=== PATIENT | male | born 1960 | race Caucasian/White ===

== ENCOUNTER 2016-08-11 07:22 | Outpatient (CLI) | payer BC ==
[~2016-08-11] VITALS: Ht 170.2 cm; Wt 87.3 kg
--- NOTE | ~2016-08-11 | HEMODYNAMI ---
PATIENT:RICCARDO PIERCE MEDICAL RECORD: [id number] : 58 LOCATION:D.ANDERS ADMISSION DATE: 08/11/16 Generatedon:08/11/201611:22 Patient name: RICCARDO PIERCE Patient #: [id number] SSN: : 1960 Date of study: 08/11/2016 Page: Of Hemodynamic Procedure Report Patient Data Patient Demographics Procedure consent was obtained First Name: RICCARDO Gender: Male Last Name: KARI : 1960 [facility] Initial: REINA Age: 55 year(s) Patient #: [id number] Race: Unknown Additional ID: [id number] Contact details Address: [address] [place] [address] rd State: [place] City: [place] Zip code: [address] Past Medical History Performed procedures and imaging results Date Procedure Procedure Results Comments 07/28/2016 Stress Positive->Intermediate Inferiorolaterally testing risk with SPECT MPI Allergies Allergen Reaction Date Comments Reported Other allergy 08/11/2016 Penicillins,sulfa Admission Admission Data Admission Date: 08/11/2016 Admission Time: 7:22 Admit Source: Other Height (in.): 67 BSA: 1.99 (m2) Height (cm.): 170.18 BMI: 30.13 (kg/m2) Weight (lbs.): 192.4 Weight (kg.): 87.27 Lab Results Lab Result Date: 08/11/2016 Lab Result Time: 8:50 Biochemistry Name Units Result Min Max Creatinine mg/dl 0.9 --(-*--)-- 0.6 1.3 CBC Name Units Result Min Max Hemoglobin g/dl 15.2 --(-*--)-- 13.5 17.5 Procedure Procedure Types Cath Procedure Diagnostic Procedure [facility] w/Coronaries PCI Procedure Coronary Stent Initial Procedure Description Procedure Date Procedure Date: 08/11/2016 Procedure Start Time: 10:33 Procedure End Time: 11:22 Procedure Staff Name Function Kris Enamorado MD Performing Physician Tyler Villar RT Scrub Leyda Brenner RN Nurse Branden Stover RN Criminal Defense Attorney Mayda Arriaga RT Monitor Procedure Data Cath Procedure Fluoroscopy Diagnostic fluoroscopy Total fluoroscopy Time: 8.9 time: 8.9 min min Diagnostic fluoroscopy Total fluoroscopy dose: 817 dose: 817 mGy mGy Contrast Material Contrast Material Type Amount (ml) Isovue 300 159 Entry Location Entry Primary Successful Side Size Upsize Upsize Entry Closure Russo ccessful Closure Location (Fr) 1 (Fr) 2 (Fr) Remarks Device Remarks Radial Right 6 Fr Unsuccessful artery Short puncture. Femoral Right 5 Fr Exoseal vein Femoral Right 5 Fr 6 Fr Exoseal artery Short Estimated blood loss: 10 ml Diagnostic catheters Device Type Used For End Catheter Placement Cordis 5Fr JL 4.0 Left Coronary Catheter (MP) Angiography Cordis 5Fr 3DRC Catheter Right Coronary (MP) Angiography Cordis 5Fr Pigtail LV Angiography Catheter (MP) Procedure Complications No complications Procedure Medications Medication Administration Route Dosage Oxygen NC 2 l/min Benadryl I.V. 50 mg Lidocaine 2% added to field 20 Heparin Flush Bag added to field 2 bags (1000units/500ml NS) 0.9% NaCl I.V. 100 ml/hr Versed I.V. 2 mg Fentanyl I.V. 100 mcg Versed I.V. 1 mg Fentanyl I.V. 50 mcg Radial Cocktail added to field 1 syringe (Verapomil 2mg/Nitro 400mcg/Heparin 1500units) Versed I.V. 1 mg Fentanyl I.V. 50 mcg Heparin Bolus I.V. 8500 units Nitroglycerin IC/IA I.C. 50 mcg Plavix P.O. 75 mg Hemodynamics Rest BSA: 1.99 (m2) HGB: 15.2 (g/dl) O2 Consumption: Estimated: 226.21 (ml/min) O2 Co nsumption indexed: Estimated:113.67 (ml/min/m) Heart Rate: 58 (bpm) Pressure Samples Time Site Value (mmHg) Purpose Heart Use Rate(bpm) 10:50 LV 101/15,26 Snapshot 66 10:51 AO 91/56(71) Pullback 67 10:51 LV 100/15,18 Pullback 67 Gradients Valve Time Site 1 Site 2 Mean SEP/DFP Peak To Heart Use (mmHg) (sec/min) Peak Rate (mmHg) (bpm) Aortic 10:51 LV AO 7 21 9 67 100/15,18 91/56(71) Calculations Valve P-P Mean Valve Index Valve Source Name Gradient Area Flow (cm2) Aortic 9 7 9 7 Snapshots Pre Cath Intra NCS Post Cath Vital Signs Time Heart Resp SPO2 etCO2 [id number] NIBP (mmHg) Rhythm Pain Sedation Rate (ipm) (%) (mmHg) (mmHg) Status Level (bpm) 10:17:03 57 19 98 0 0 118/63(90) NSR 0 (11) 10(A) , No pain 10:21:17 59 19 99 0 0 124/75(105) NSR 0 (11) 10(A) , No pain 10:25:36 61 20 99 0 0 121/75(99) NSR 0 (11) 10(A) , No pain 10:29:54 63 18 94 0 0 103/59(86) NSR 0 (11) 10(A) , No pain 10:34:05 62 17 94 0 0 100/59(81) NSR 0 (11) 9(A) , No pain 10:38:17 61 19 95 0 0 98/58(76) NSR 0 (11) 9(A) , No pain 10:42:27 63 19 94 0 0 105/61(76) NSR 0 (11) 9(A) , No pain 10:46:39 62 19 95 0 0 93/63(82) NSR 0 (11) 9(A) , No pain 10:50:47 89 19 94 0 0 93/60(79) NSR 0 (11) 9(A) , No pain 10:54:57 66 18 95 0 0 95/57(74) NSR 0 (11) 9(A) , No pain 10:59:09 70 18 95 0 0 92/49(72) NSR 0 (11) 9(A) , No pain 11:03:19 70 17 95 0 0 89/52(69) NSR 0 (11) 9(A) , No pain 11:07:27 70 17 94 0 0 93/56(70) NSR 0 (11) 9(A) , No pain 11:11:36 67 17 94 0 0 94/53(72) NSR 0 (11) 9(A) , No pain 11:15:42 71 16 95 0 0 103/67(81) NSR 0 (11) 9(A) , No pain 11:19:52 71 25 97 0 0 117/68(99) NSR 0 (11) 9(A) , No pain Medications Time Medication Route Dose Verified Delivered Reason Note s Effectiveness by by 10:15:39 Oxygen NC 2 l/min Kris Buffie used for London Brenner RN procedure 10:15:47 Benadryl I.V. 50 mg Kris Buffie used for London Brenner RN procedure 10:20:28 Radial Cocktail added 1 Kris Buffie not (Verapomil to syringe London Brenner RN used. 2mg/Nitro field 400mcg/Heparin 1500units) 10:22:29 Lidocaine 2% added 20ml Kris Kris for local to vial London Enamorado MD anesthetic field 10:22:36 Heparin Flush added 2 bags Kris Kris used for Bag to London Enamorado MD procedure (1000units/500ml field NS) 10:22:45 0.9% NaCl I.V. 100 Kris Buffie Per physician ml/hr London Brenner RN 10:29:43 Versed I.V. 2 mg Kris Buffie for sedation London Brenner RN 10:29:50 Fentanyl I.V. 100 mcg Kris Buffie for sedation London Brenner RN 10:37:37 Versed I.V. 1 mg Kris Buffie for sedation London Brenner RN 10:37:42 Fentanyl I.V. 50 mcg Kris Buffie for sedation London Brenner RN 10:43:36 Versed I.V. 1 mg Kris Buffie for sedation London Brenner RN 10:43:41 Fentanyl I.V. 50 mcg Kris Buffie for sedation London Brenner RN 10:55:22 Heparin Bolus I.V. 8,500 Kris Buffie for veri fied units London Brenner RN anticoagulation with dr enamorado 10:57:05 Nitroglycerin I.C. 50 mcg Kris Kris for IC/IA London palmer 11:16:56 Plavix P.O. 75 mg Kris Buffie for London Brenner RN antiplatelet therapy Procedure Log Time Note 9:48:25 Branden Stover RN sent for patient. Start room use. 9:48:27 Time tracking: Regular hours 9:48:31 Plan of Care:Hemodynamics will remain stable., Cardiac rhythm will remain stable., Comfort level will be maintained., Respiratory function will remain adequate., Patient/ family verbilizes understanding of procedure., Procedure tolerated without complication., Recovers from procedure without complications.. 9:59:29 Patient Height : 67 cm 9:59:34 Patient Weight : 192.4 kg 9:59:39 Admit Source: Other 10:00:06 Patient allergic to Other allergyPenicillins,sulfa 10:00:37 Lab Result : Creatinine 0.9 mg/dl 10:00:37 Lab Result : Hemoglobin 15.2 g/dl 10:00:41 Lab results completed and on chart. 10:03:29 ACCPatient has been prescribed/administered the following anti-anginal medication within the last 2 weeks: Beta Roman 10:03:33 ACC Patient presents with Stable Angina CCS Anginal Class 2--Slight limitation of ordinary activity. 10:09:39 Patient received from Outpatients to [facility] 2 Alert and oriented. Tansferred to table in Supine position. 10:09:40 Warm blankets applied, and dwayne hugger turned on for patient comfort. 10:09:41 Correct patient and procedure confirmed by team. 10:09:42 Signed procedure consent form obtained from patient. 10:09:43 ECG and BP/O2 sat monitors applied to patient. 10:09:44 Full Disclosure recording started 10:15:39 Oxygen 2 l/min NC was given by Leyda Brenner RN; used for procedure; 10:15:47 Benadryl 50 mg I.V. was given by Leyda Brenner RN; used for procedure; 10:15:51 Vital chart was started 10:17:39 Baseline sample Acquired. 10:18:11 Rhythm: sinus rhythm 10:20:28 Radial Cocktail (Verapomil 2mg/Nitro 400mcg/Heparin 1500units) 1 syringe added to field was given by Leyda Brenner RN; ; not used. 10:22:29 Lidocaine 2% 20ml vial added to field was given by Kris Enamorado MD; for local anesthetic; 10:22:36 Heparin Flush Bag (1000units/500ml NS) 2 bags added to field was given by Kris Enamorado MD; used for procedure; 10:22:45 0.9% NaCl 100 ml/hr I.V. was given by Leyda Brenner RN; Per physician; 10:23:04 H&P Date Dictated: 07/14/2016 Within 30 days and on chart., H&P Addendum completed by physician on day of procedure. (MUST COMPLETE FOR ALL OUTPATIENTS). 10:23:05 Pre-procedure instructions explained to patient. 10:23:05 Pre-op teaching completed and patient verbalized understanding. 10:23:06 Family in waiting room. 10:23:08 Patient NPO since Midnight. 10:23:10 Is the patient allergic to Iodine/contrast media? No. 10:23:11 Is patient on blood thinner?Yes 10:23:13 ACC The patient was administered the following blood thiners within the last 24 hours: ACCPlavix 10:23:16 Patient diabetic? No. 10:23:19 Previous problem with sedation/anesthesia? No ? 10:23:20 Snore? Yes 10:23:21 Sleep apnea? No 10:23:21 Deviated septum? No 10:23:22 Opens mouth fully? Yes 10:23:23 Sticks out tongue? Yes 10:23:24 Airway obstruction? No ? 10:23:26 Dentures? No ? 10:23:29 Pre procedure: right dorsailis pedis pulse 2+ Normal; easily identifiable; not easily obliterated 10:23:32 Modified Orlin's test Ulnar < 7 seconds 10:23:34 Patient pain scale 0/10 ?. 10:23:40 IV patent on arrival in left forearm with 0.9% NaCl at [facility]. 10:23:46 Right Radial & Right Groin area was prepped with chlora-prep and draped in sterile fashion 10:23:46 Alarms reviewed by R. N. 10:23:47 Sharps counted by scrub and verified by R.N. 10:23:52 Use device set Radial Dx 10:23:53 Acist Syringe opened to sterile field. 10:23:53 Cardinal Cath Pack opened to sterile field. 10:23:54 Bag Decanter opened to sterile field. 10:23:54 Terumo 6Fr Slender Glidesheath opened to sterile field. 10:23:55 St Malick 260cm J .035 wire opened to sterile field. 10:23:56 Acist Hand Control opened to sterile field. 10:23:56 Acist Manifold opened to sterile field. 10:23:57 Tegaderm 4 x 4 opened to sterile field. 10:28:14 Final Timeout: patient, procedure, and site verified with staff and physician. All members of the team are in agreement. 10:28:19 Right Radial site verified by team. 10:28:21 Physical assessment completed. ASA score P 2 - A patient with mild systemic disease as per Kris Enamorado MD. 10:28:24 Sedation plan: IV Moderate Sedation Versed, Fentanyl 10:29:43 Versed 2 mg I.V. was given by Leyda Brenner RN; for sedation; 10:29:50 Fentanyl 100 mcg I.V. was given by Leyda Brenner RN; for sedation; 10:33:06 Procedure started. 10:33:12 Zero performed for pressure channel P1 10:33:42 Local anesthetic to right radial artery with Lidocaine 2% by Kris Enamorado MD.INITIAL ACCESS ONLY 10:34:29 A 6 Fr Short sheath was inserted into the Right Radial arteryUnsuccessful puncture. 10:37:37 Versed 1 mg I.V. was given by Leyda Brenner RN; for sedation; 10:37:42 Fentanyl 50 mcg I.V. was given by Leyda Brenner RN; for sedation; 10:38:52 Terumo 5Fr [place] Sheath opened to sterile field. 10:39:44 Use device set Multipack Set 10:39:46 Cordis Infinity 5Fr Multipack catheter opened to sterile field. 10:39:58 Local anesthetic to right femoral artery with Lidocaine 2% by Kris Enamorado MD.ADDITIONAL ACCESS 10:42:32 A 5 Fr sheath was inserted into the Right Femoral vein 10:43:36 Versed 1 mg I.V. was given by Leyda Brenner RN; for sedation; 10:43:41 Fentanyl 50 mcg I.V. was given by Leyda Brenner RN; for sedation; 10:44:00 A 5 Fr sheath was inserted into the Right Femoral artery 10:45:12 A Cordis 5Fr JL 4.0 Catheter (MP) was advanced over the wire and used for Left Coronary Angiography. 10:46:58 Catheter removed. 10:47:34 A Cordis 5Fr 3DRC Catheter (MP) was advanced over the wire and used for Right Coronary Angiography. 10:49:23 Catheter removed. 10:50:10 A Cordis 5Fr Pigtail Catheter (MP) was advanced over the wire and used for LV Angiography. 10:50:52 LV gram done using MEDRANO 10:50:53 LV hemodynamics recorded. 10:50:59 Injector settings: Ml/sec: 10, Volume: 20, 10:51:03 EF : 60 % 10:52:28 Catheter removed. 10:53:35 High Pressure Extension Tubing (oLndon) opened to sterile field. 10:53:37 Terumo 6Fr [place] Sheath opened to sterile field. 10:53:37 Ellis BMW [place] 2 J-tip 300cm 0.014 guide wir opened to sterile field. 10:53:55 Sheath upsized to a 6 Fr Short. 10:54:03 ACC PCI Site: mLAD has 70% stenosis. 10:54:05 ACC Pre-intervention ELIAZAR Flow is 3. 10:54:36 6 Fr AR 1.0 guide catheter was inserted over the wire 10:55:22 Heparin Bolus 8,500 units I.V. was given by Leyda Brenner RN; for anticoagulation; verified with dr enamorado 10:57:05 Nitroglycerin IC/IA 50 mcg I.C. was given by Kris Enamorado MD; for vasodilation; 10:59:03 BM wire advanced. 11:03:48 Inflation Number: 1 A Medtronic Integrity 3.0 X 30 stent was prepped and advanced across the Mid RCA. The stent was deployed at 14 MICKI for 0:15 (min:sec). 11:05:03 Stent catheter was removed intact over wire. 11:11:41 Inflation Number: 2 A Medtronic Integrity 3.0 X 18 stent was prepped and advanced across the Mid RCA. The stent was deployed at 16 MICKI for 0:20 (min:sec). 11:12:24 ACC Post-intervention ELIAZAR Flow is 3. 11:12:29 Stent catheter was removed intact over wire. 11:12:31 Wire removed. 11:12:31 Guide catheter removed. 11:12:45 Cordis 6Fr Exoseal opened to sterile field. 11:12:51 Cordis 5Fr Exoseal opened to sterile field. 11:13:13 Sheath removed intact; hemostasis achieved with Exoseal to the Right Femoral artery. 11:13:44 Sheath removed intact; hemostasis achieved with Exoseal to the Right Femoral vein. 11:13:48 Procedure ended.(Physican Out) 11:16:11 Fluoroscopy time 08.90 minutes. 11:16:16 Fluoroscopy dose: 817 mGy 11:16:16 Flurop Dose total: 817 11:16:23 Contrast amount:Isovue 300 159ml. 11:16:24 Sharps counted by scrub and verified by R.N. 11:16:26 Insertion/operative site no bleeding no hematoma. 11:16:32 Post-op/insertion site Right Femoral artery dressed using a 4 x 4 and Tegaderm. 11:16:36 Post right femoral artery:stable, clean and dry 11:16:42 Post right femoral vein:stable, clean and dry 11:16:43 Post Procedure Pulses reassessed and unchanged 11:16:47 Post-procedure physical assessment completed. ASA score P 2 - A patient with mild systemic disease as per Kris Enamorado MD. 11:16:49 Post procedure rhythm: unchanged. 11:16:52 Estimated blood loss: 10 ml 11:16:53 Post procedure instruction explained to patient.Patient verbalizes understanding. 11:16:54 Patient needs reinforcement of post procedure teaching. 11:16:56 Plavix 75 mg P.O. was given by Leyda Brenner RN; for antiplatelet therapy; 11:16:58 Procedure type changed to Cath procedure, Diagnostic procedure, LHC, LHC w/Coronaries, PCI procedure, Coronary Stent Initial 11:17:05 Procedure Complication : No complications 11:17:08 See physician's report for complete and final results. 11:18:31 Merit BasixCompak Inflation Kit opened to sterile field. 11:18:56 Terumo 5Fr [place] Sheath opened to sterile field. 11:20:34 Cook 21G 4cm Radial Needle opened to sterile field. 11:21:21 Medtronic Launcher 6Fr AR 1.0 guide catheter opened to sterile field. 11:21:44 Procedure and supply charges have been captured, reviewed, submitted and are correct. 11:21:46 Vital chart was stopped 11:21:48 Report given to Post Procedure Room. 11:21:53 Patient transfered to Post Procedure Room with Stretcher. 11:22:05 Procedure ended. 11:22:05 Full Disclosure recording stopped 11:22:31 End room use (Document Last) Intervention Summary Intervention Notes Time ActionType Lesion and Equipment Action# Pressure Duration Attributes Used 11:03:48 Place stent Mid RCA Medtronic 1 14 00:15 Integrity 3.0 X 30 stent 11:11:41 Place stent Mid RCA Medtronic 2 16 00:20 Integrity 3.0 X 18 stent Device Usage Item Name Manufacture Quantity Catalog Hospital Part Current Minimal Lot# / Number Charge Number Stock Stock Serial# Code Acist Acist 1 41816 490182 324028 180921 20 Syringe Medical Systems Inc Cardinal Cardinal 1 [id number] 527619 40024 504624 5 Cath Pack Health Bag Microtek 1 2002S 993594 68954 545207 5 DecPrimcogent Solutions Inc. Terumo 6Fr Terumo 1 [id number] 993143 049316 249839 [address] Malick St Malick 1 424919 201015 801067 943623 30 260cm J .035 wire Acist Hand Acist 1 81353 810107 816255 190528 5 Intralign Medical Systems Inc Acist Acist 1 57323 468831 839622 760466 5 Project Repat Medical Systems Inc Tegaderm 4 3M 1 1626W 618954 752405 867921 5 x 4 Terumo 5Fr Terumo 2 [id number] 300017 602689 881605 40 [place] Sheath Cordis Cardinal 1 [id number] 121406 36425 604335 30 Infinity Health 5Fr Multipack catheter Cordis 5Fr Cardinal 1 221738 5 JL 4.0 Health Catheter (MP) Cordis 5Fr Cardinal 1 445895 5 3DRC Health Catheter (MP) Cordis 5Fr Cardinal 1 399527 5 Pigtail Health Catheter (MP) High Merit 1 [id number] 739699 76197 851791 10 Pressure Medical Extension Tubing (Enamorado) Terumo 6Fr Terumo 1 [id number] 076813 528831 358253 40 [place] Sheath Ellis BMW Ellis 1 [id number] 038047 158343 380318 5 [place] 2 Vascular J-tip 300cm 0.014 guide wir Medtronic Medtronic 1 [id number] 301231 968418 063581 2 [id number] Integrity 3.0 X 30 stent Medtronic Medtronic 1 [id number] 141109 941028 740876 1 [id number] Integrity 3.0 X 18 stent Cordis 6Fr Cardinal 1 [id number] 189821 177554 807720 10 Exoseal Health Cordis 5Fr Cardinal 1 EX500 978883 911829 644377 10 Exoseal Health Merit [facility] 1 [id number] 504039 980764 478826 15 MediaBrixixOhmconnect Medical Inflation Kit Cook 21G [employer] 1 [id number] 559929 539790 5 4cm Radial Needle Medtronic Medtronic 1 [id number] 245544 91519 326523 1 Launcher 6Fr AR 1.0 guide catheter Signature Audit [place] Stage Time Signature Unsigned Intra-Procedure 08/11/2016 Mayda 11:22:44 AM Counts RT(R) Signatures Monitor : Mayda Signature : Counts RT Date : Time : [address] [address]
[2016-08-11] MEDS ORDERED: TOPROL XL50 MG PO (08:22)
[2016-08-11] MEDS ORDERED: PLAVIX75 MG PO (08:22)
[2016-08-11] MEDS ORDERED: RAMIPRIL (08:23)
[2016-08-11] MEDS ORDERED: ATORVASTATIN (08:24)
[2016-08-11] MEDS ORDERED: MUCUS RELIEF400 MG PO (08:24)
[2016-08-11] MEDS ORDERED: ASPIRIN325 MG PO (08:25)
[2016-08-11] MEDS ORDERED: ZANTAC150 MG PO (08:25)
[2016-08-11] MEDS ORDERED: LIPITOR40 MG PO (08:27)
[2016-08-11] MEDS ORDERED: ALTACE5 MG PO (08:28)
[2016-08-11 08:36] VITALS: BP 122/75; Ht 170.2 cm; Wt 87.3 kg
[2016-08-11 09:14] LABS: BASOPHILS 0.2 % (0.0-2.0); EOSINOPHILS 0.9 % (0-7); HEMATOCRIT 44.9 % (42.0-54.0); HEMOGLOBIN 15.2 g/dL (13.5-17.5); IMMATURE GRANULOCYTES 0.5 % (0-5); LYMPHOCYTES 17.7 % (15-50); MCH 30.8 pg (26.0-34.0); MCHC 33.9 g/dL (31.0-37.0); MCV 91.1 fL (80.0-100.0); MONOCYTES 7.1 % (2-11); NEUTROPHILS 73.6 % (40-80); PLATELET COUNT 152 10x3/uL (130-400); RBC 4.93 10x6/uL (4.20-6.10); RDW 13.1 % (11.5-14.5); WBC 9.8 10x3/uL (4.8-10.8)
[2016-08-11 09:47] LABS: CALC OSMOLALITY 282 mosm/kg (275-300); CALCIUM 9.1 mg/dL (8.5-10.1); CARBON DIOXIDE 26.4 mmol/L (21.0-32.0); CHLORIDE - SERUM 107 mmol/L (98-107); CREATININE - SERUM 0.9 mg/dL (0.6-1.3); GLUCOSE 92 mg/dL (74-106); POTASSIUM - SERUM 4.4 mmol/L (3.5-5.1); SODIUM 141 mmol/L (136-145); UREA NITROGEN 17 mg/dL (7-18); eGFR NON AFRICAN AMERICAN > 90 mL/min (90-120)
--- NOTE | 2016-08-11 11:50 | NUR ---
RESTING QUIETLY WITH EYES CLOSED 02 AT 2 LITERS NO DISTRESS HR 65 BP 126/66 CHEST PAIN DENIED. 6 FR VASCADE R/GROIN CDI NO BLEEDING NO HEMATOMA NOTED. INSTRUCTED PATIENT TO KEEP HEAD FLAT ON PILLOW WITH RLE STRAIGHT
--- NOTE | 2016-08-11 13:06 | NUR ---
VOIDED 400CC URINE VIA URINAL
--- NOTE | 2016-08-11 13:39 | NUR ---
SLEEPING QUIETLY WITH NO DISTRESS NOTED. VSS 6 FR EXOSEAL R/GROIN CDI NO BLEEDING NO HEMATOMA NOTED. WILL MONITOR
--- NOTE | 2016-08-11 15:32 | NUR ---
1430 CONTINUES TO LAY FLAT, NSR RATE 77 WNO C/O CHEST PAIN. PULSES PALP X4. BOTH 5/6F EXOSEAL C/D/I TO R GROIN. NO HEMATOMA OR BLEEDING NOTED.
--- NOTE | 2016-08-11 15:32 | NUR ---
1530 PIV REMOVED FROM L FOREARM WITH BANDAID APPLIED. HOB ELEVATED, WILL MONITOR R GROIN FOR BLEEDING.
--- NOTE | 2016-08-11 15:42 | NUR ---
UP TO BEDSIDE TO DRESS, R GROIN REMAINS C/D/I WITH NO HEMATOMA OR BLEEDING.
--- NOTE | 2016-08-11 15:54 | NUR ---
VERBAL AND WRITTEN DISCHARGE GONE OVER WITH PATIENT AND . TRANSPORTED VIA TO [facility] TO DRIVE HOME CHEST PAIN IS DENIED AND 6 FR EXOSEAL R/GROIN CDI
--- NOTE | 2016-08-15 15:45 | OP ---
PATIENT NAME: RICCARDO PIERCE MEDICAL RECORD: [id number] :58 LOCATION:D.CAT ADMISSION DATE: SURGEON: ROULA LINARES M.D. DATE OF OPERATION: 08/11/2016 Catheterization Report REFERRING PHYSICIAN: Dr. Pawel Hale. PROCEDURES PERFORMED: 1. Selective coronary angiography. 2. Left heart catheterization with ventriculogram. 3. PTCA and stent placed in the right coronary. INDICATION: A 55-year-old gentleman presents with worsening angina. Recent stress testing revealed inferior and lateral wall ischemia. EQUIPMENT USED: Diagnostic 5-Welsh JL4, Calos right, pigtail catheter. INTERVENTION: A 6-Welsh AR1 guide, BMW guide wire, 3.0 x 30 mm Integrity stent, 3.0 x 18 mm Integrity stent. TECHNIQUE: A 5-Welsh sheath was inserted in retrograde fashion in the right common femoral artery. Next, selective coronary angiography was performed in standard views using 5-Welsh JL4 and Calos right. Left heart catheterization was performed using pigtail catheter. CORONARY ANATOMY: 1. Left main: Left main trunk is moderate in caliber. It gives rise to the LAD and circumflex. It has no obstruction. 2. LAD: This vessel has been stented in the proximal segment. There is diffuse restenosis seen, but nothing worse than 30% to 40%. The mid distal vessel is of good caliber and has no obstruction. 3. Circumflex: This vessel is moderate in caliber. It has mild irregularities throughout its course, but nothing worse than 20%. 4. Right coronary: This vessel is moderate in caliber and dominant. The proximal vessel has an ulcerated 60% to 70% stenosis. The mid segment demonstrates a focal 80% stenosis. 5. Left ventricle: Left ventricle is normal in size and function. No wall motion abnormalities are seen. Estimated ejection fraction is 60%. DESCRIPTION OF INTERVENTION: A 6-Welsh sheath was inserted in retrograde fashion in the right common femoral artery. Next, 100 units per kilogram of heparin was infused. A 6-Welsh AR1 guide was advanced and engaged in the right coronary artery. Next, a BMW guide wire was passed into the distal vessel. A 3.0 x 30 mm Integrity stent was placed across this long diseased area and across the distal lesion. The stent was then deployed at 14 atmospheres. However, the proximal stent, there still was an area that was uncovered and still was ulcerated. At this point, 3.0 x 18 mm Integrity stent was placed proximally the existing stent in an overlapping fashion. This stent was deployed at 16 atmospheres. Injection revealed both stents to be widely patent with 0% residual stenosis. There is marked improvement in distal flow. At this point, the wire and guide were removed. IMPRESSION: Successful percutaneous transluminal coronary angioplasty and stent OPERATIVE REPORT [id number] RICCARDO PIERCE in the right coronary artery. TRANSINT:[id number] Voice Confirmation ID: [id number] DOCUMENT ID: [id number] ROULA LINARES M.D. at 1545 CC: [id number] DICTATION DATE: 08/11/16 1123 QUESTIONED DOCUMENTS EXAMINER: 08/11/[address] [facility] CLI 08/11/16 [facility] [address] [place] [address]
== END 2016-08-11 15:56 | disposition home or self-care (01) ==
LOC: D.CATH 07:22
PROVIDERS: Internal Medicine Cardiovascular Disease
DX: I25.10 Atherosclerotic heart disease of native coronary artery without angina pectoris (principal); F17.200 Nicotine dependence, unspecified, uncomplicated

== ENCOUNTER 2016-11-28 01:53 | Outpatient (CLI) | payer BC ==
[~2016-11-28] VITALS: Ht 170.2 cm; Wt 87.7 kg
--- NOTE | ~2016-11-28 | OP ---
PATIENT NAME: RICCARDO PIERCE MEDICAL RECORD: [id number] :58 LOCATION:D.M2 D.2115 ADMISSION DATE:11/28/16 SURGEON: VIMAL COLEMAN MD DATE OF OPERATION: 11/28/2016 Cath, PTCA report, right femoral artery approach. CATHETERS: A 5-Mohawk sheath, 5/4 left and right Janneth, 5/4 pig. The procedure was tolerated and we proceeded immediately with the intervention of the ____ finished. FINDINGS: Left ventriculography in 30-degree MEDRANO view: Normal wall motion, normal systolic function. CORONARY ANATOMY: Left main: Left main is free of disease. LAD: LAD has about 70% stenosis and a restenosis in the proximal portion, does not appear flow limiting. CIRCUMFLEX: Circumflex has a OM with about 50% to 60% restenosis. RIGHT CORONARY ARTERY: Has severe diffuse in-stent restenosis, 90% in its greatest. PLAN: Intervention of this vessel momentarily. DESCRIPTION OF PROCEDURE: A 5-Mohawk sheath was changed for a 6-Mohawk sheath. A hockey stick guide catheter applied with excellent guide catheter support. Pre-deployment balloon used was a 20 mm, 3.0. Balloon was placed up and down the area of diffusely restenotic stents. Stents were placed in the following fashion. A 36 mm, 3.5 Resolute stent was placed to cover the entire distal aspect, inflated up to 14 atmospheres. Next, more proximally a 15 mm Resolute drug-eluting stent inflated up to 14 atmospheres. Final injection shows excellent resolution of severe diffuse in-stent restenosis ____ negative residual. Given caliber of the stent and medicated, hopefully, this will significantly decrease chance of restenosis as he has multiple episodes of restenosis in the past. TRANSINT:[id number] Voice Confirmation ID: [id number] DOCUMENT ID: [id number] VIMAL COLEMAN MD CC: [id number] DICTATION DATE: 11/28/16 1004 THEATRICAL TROUPER: 11/28/16 1631 DIS IN 11/28/16 [facility] [address] [id number]
--- NOTE | ~2016-11-28 | HEMODYNAMI ---
PATIENT:RICCARDO PIERCE MEDICAL RECORD: [id number] : 58 LOCATION:[facility] D.2115 ADMISSION DATE: 11/28/16 Generatedon:11/28/201610:03 Patient name: RICCARDO PIERCE Patient #: [id number] SSN: : 1960 Date of study: 11/28/2016 Page: Of Hemodynamic Procedure Report Patient Data Patient Demographics Procedure consent was obtained First Name: RICCARDO Gender: Male Last Name: KARI : 1960 [facility] Initial: REINA Age: 56 year(s) Patient #: [id number] Race: Unknown Additional ID: [id number] Contact details Address: [address] [place] [address] State: [place] City: [place] Zip code: [address] Past Medical History Allergies Allergen Reaction Date Comments Reported Other allergy 08/11/2016 Penicillins,sulfa Sulfa drugs 11/28/2016 Penicillins 11/28/2016 Admission Admission Data Admission Date: 11/28/2016 Admission Time: 1:53 Room #: D.2115 Lab Results Lab Result Date: 11/28/2016 Lab Result Time: 0:00 Biochemistry Name Units Result Min Max BUN mg/dl 21 --(----)-* 7 18 Creatinine mg/dl 1 --(--*-)-- 0.6 1.3 CBC Name Units Result Min Max Hemoglobin g/dl 14 --(*---)-- 13.5 17.5 Procedure Procedure Types Cath Procedure Diagnostic Procedure LHC LHC w/Coronaries PCI Procedure Coronary Stent Initial Miscellaneous Procedures Moderate Sedation up to 15 minutes Procedure Description Procedure Date Procedure Date: 11/28/2016 Procedure Start Time: 9:33 Procedure End Time: 10:01 Procedure Staff Name Function Eddie Johnson MD Performing Physician Jo Cee RN Nurse Radha Patton RT Scrub Tata Herman RT Monitor Procedure Data Cath Procedure Fluoroscopy Diagnostic fluoroscopy Total fluoroscopy Time: 7 time: 7 min min Diagnostic fluoroscopy Total fluoroscopy dose: 722 dose: 722 mGy mGy Contrast Material Contrast Material Type Amount (ml) Isovue 300 100 Entry Location Entry Primary Successful Side Size Upsize Upsize Entry Closure Succes sful Closure Location (Fr) 1 (Fr) 2 (Fr) Remarks Device Remarks Femoral Right 5 Fr 6 Fr Exoseal artery Short Estimated blood loss: 10 ml Diagnostic catheters Device Type Used For End Catheter Placement Cordis 5Fr JL 4.0 Procedure Catheter (MP) Cordis 5Fr 3DRC Catheter Procedure (MP) Cordis 5Fr Pigtail LV Angiography Catheter (MP) Procedure Complications No complications Procedure Medications Medication Administration Route Dosage Oxygen NC 3 l/min Heparin Flush Bag added to field 2 bags (1000units/500ml NS) Lidocaine 2% added to field 20 Versed I.V. 1 mg Fentanyl I.V. 50 mcg Versed I.V. 1 mg Fentanyl I.V. 50 mcg Versed I.V. 1 mg Fentanyl I.V. 50 mcg Heparin Bolus I.V. 5000 units Integrilin (Bolus I.V. 7.9 ml 2mg/ml) Versed I.V. 1 mg Fentanyl I.V. 50 mcg Plavix P.O. 300 mg Hemodynamics Rest HGB: 14 (g/dl) Heart Rate: 63 (bpm) Pressure Samples Time Site Value (mmHg) Purpose Heart Use Rate(bpm) 9:40 LV 117/12,20 Snapshot 63 Gradients Valve Time Site Site Mean SEP/DFP Peak To Heart Use 1 2 (mmHg) (sec/min) Peak Rate (mmHg) (bpm) Aortic 9:41 LV AO 67 Snapshots Pre Cath Intra NCS Post Cath Vital Signs Time Heart Resp SPO2 etCO2 LP8izbe NIBP (mmHg) Rhythm Pain Sedation Rate (ipm) (%) (mmHg) (mmHg) Status Level (bpm) 8:45:04 61 18 97 0 0 113/69(88) NSR 0 (11) 10(A) , No pain 8:49:15 63 17 98 0 0 113/68(84) NSR 0 (11) 10(A) , No pain 8:53:27 59 16 97 0 0 114/58(79) NSR 0 (11) 10(A) , No pain 8:57:39 61 16 97 0 0 100/60(78) NSR 0 (11) 10(A) , No pain 9:01:49 62 16 96 0 0 99/60(72) NSR 0 (11) 10(A) , No pain 9:05:59 62 17 96 0 0 100/54(70) NSR 0 (11) 10(A) , No pain 9:10:09 63 17 96 0 0 100/55(84) NSR 0 (11) 10(A) , No pain 9:14:19 62 16 96 0 0 96/56(70) NSR 0 (11) 10(A) , No pain 9:18:29 62 17 96 0 0 91/50(69) NSR 0 (11) 10(A) , No pain 9:22:34 64 16 96 0 0 90/58(71) NSR 0 (11) 10(A) , No pain 9:26:42 62 16 96 0 0 94/53(77) NSR 0 (11) 10(A) , No pain 9:30:50 62 15 96 0 0 96/54(78) NSR 0 (11) 10(A) , No pain 9:35:02 63 15 96 0 0 92/47(66) NSR 0 (11) 10(A) , No pain 9:39:04 66 15 97 0 0 111/70(94) NSR 0 (11) 9(A) , No pain 9:43:16 67 16 97 0 0 106/66(85) NSR 0 (11) 9(A) , No pain 9:47:24 67 16 98 0 0 100/72(84) NSR 0 (11) 9(A) , No pain 9:51:25 84 15 98 0 0 120/82(101) NSR 0 (11) 9(A) , No pain 9:56:22 71 16 99 0 0 152/93(127) NSR 0 (11) 10(A) , No pain 10:00:40 67 16 99 0 0 151/89(125) NSR 0 (11) 10(A) , No pain Medications Time Medication Route Dose Verified Delivered Reason Notes Effectiveness by by 8:44:22 Oxygen NC 3 Eddie Cariasecca Per physician l/min [facility] Woody Cee RN, MD 8:44:35 Heparin Flush added 2 Eddie Morgan used for Bag to bags CharlesAll Johnson procedure (1000units/500ml field MD HASKINS NS) 8:44:44 Lidocaine 2% added 20ml Eddie Eddie used for to vial SandstonWoody Johnson procedure field MD HASKINS 9:31:20 Versed I.V. 1 mg Eddie Jo for sedation [facility] Woody Cee RN, MD 9:31:26 Fentanyl I.V. 50 Eddie Jo for sedation mcg [facility] Woody Cee RN, MD 9:33:22 Versed I.V. 1 mg Eddie Jo for sedation [facility] Woody Cee RN, MD 9:33:24 Fentanyl I.V. 50 Eddie Jo for sedation mcg [facility] Woody Cee RN, MD 9:35:35 Versed I.V. 1 mg Eddie Jo for sedation [facility] Woody Cee RN, MD 9:35:39 Fentanyl I.V. 50 Eddie Jo for sedation mcg [facility] Woody Cee RN, MD 9:37:37 Versed I.V. 1 mg Eddie Jo for sedation [facility] Woody Cee RN, MD 9:37:45 Fentanyl I.V. 50 Eddie Jo for sedation mcg [facility] Woody Cee RN, MD 9:42:59 Heparin Bolus I.V. 5000 Eddie Rameshca for dose units [facility] Woody Cee RN anticoagulation verified MD by dr johnson 9:45:11 Integrilin I.V. 7.9 Eddie Jo for (Bolus 2mg/ml) ml [facility] Woody Cee RN antiplatelet therapy 10:01:45 Plavix P.O. 300 Eddie Rameshca for mg [facility] Woody Cee RN antiplatelet therapy Procedure Log Time Note 8:06:19 Diagnostic Cath Status : Elective 8:06:26 Time tracking: Regular hours 8:06:31 Plan of Care:Hemodynamics will remain stable., Cardiac rhythm will remain stable., Comfort level will be maintained., Respiratory function will remain adequate., Patient/ family verbilizes understanding of procedure., Procedure tolerated without complication., Recovers from procedure without complications.. 8:20:24 Jo Cee RN sent for patient. Start room use. 8:37:31 Patient received from PCU to CCL 1 Alert and oriented. Tansferred to table in Supine position. 8:37:32 Warm blankets applied, and dwayne hugger turned on for patient comfort. 8:37:33 Correct patient and procedure confirmed by team. 8:37:34 Signed procedure consent form obtained from patient. 8:37:35 ECG and BP/O2 sat monitors applied to patient. 8:43:58 Vital chart was started 8:44:22 Oxygen 3 l/min NC was administered by Jo Cee RN; Per physician; 8:44:35 Heparin Flush Bag (1000units/500ml NS) 2 bags added to field was administered by Eddie Johnson MD; used for procedure; 8:44:44 Lidocaine 2% 20ml vial added to field was administered by Eddie Johnson MD; used for procedure; 8:47:44 Baseline sample Acquired. 8:47:48 Rhythm: sinus rhythm 8:47:57 Full Disclosure recording started 8:48:59 H&P Date Dictated: 11/28/2016 Within 30 days and on chart.. 8:49:00 Pre-procedure instructions explained to patient. 8:49:01 Pre-op teaching completed and patient verbalized understanding. 8:49:08 Family unavailable. 8:49:10 Patient NPO since Midnight. 8:49:33 Patient allergic to Sulfa drugs 8:49:37 Patient allergic to Penicillins 8:49:39 Is the patient allergic to Iodine/contrast media? No. 8:49:44 Is patient on blood thinner?Yes 8:49:50 ACC The patient was administered the following blood thiners within the last 24 hours: ACCPlavix 8:50:00 plavix was on 11/26/16 8:51:02 Patient diabetic? No. 8:51:03 ----Pre-sedation anethsthesia assessment.---- 8:51:06 Previous problem with sedation/anesthesia? No ? 8:51:12 Snore? Yes 8:51:14 Sleep apnea? No 8:51:16 Deviated septum? No 8:51:18 Opens mouth fully? Yes 8:51:21 Sticks out tongue? Yes 8:51:23 Airway obstruction? No ? 8:51:26 Dentures? No ? 8:51:31 Pre procedure: right dorsailis pedis pulse 1+ Palpable, but thready & weak; easily obliterated 8:51:35 Patient pain scale 0/10 ?. 8:51:45 IV patent on arrival in left wrist with 0.9% NaCl at 10ml/hr. 8:54:42 Lab Result : BUN 21 mg/dl 8:54:42 Lab Result : Creatinine 1 mg/dl 8:54:42 Lab Result : Hemoglobin 14 g/dl 8:54:45 Lab results completed and on chart. 8:54:49 Right groin area was prepped with chlora-prep and draped in sterile fashion 8:54:50 Alarms reviewed by R. N. 8:54:51 Sharps counted by scrub and verified by R.N. 8:55:24 Physician paged 9:03:29 Use device set Femoral Dx 9:03:49 Acist Syringe opened to sterile field. 9:03:50 Bag Decanter opened to sterile field. 9:03:50 Medline Cath Pack opened to sterile field. 9:03:51 Terumo 5Fr Terrell Sheath opened to sterile field. 9:03:52 St Malick 260cm J .035 wire opened to sterile field. 9:03:53 Acist Hand Control opened to sterile field. 9:03:54 Acist Manifold opened to sterile field. 9:03:55 Diagnostic Infinity 5Fr Multipack catheter opened to sterile field. 9:04:01 Tegaderm 4 x 4 opened to sterile field. 9:06:05 Zero performed for pressure channel P1 9:31:10 Physician arrived 9:31:12 --------ALL STOP TIME OUT------ 9:31:14 Final Timeout: patient, procedure, and site verified with staff and physician. All members of the team are in agreement. 9:31:18 Right groin site verified by team. 9:31:20 Versed 1 mg I.V. was administered by Jo Cee RN; for sedation; 9:31:24 Physical assessment completed. ASA score P 2 - A patient with mild systemic disease as per Eddie Johnson MD. 9:31:26 Fentanyl 50 mcg I.V. was administered by Jo Cee RN; for sedation; 9::28 Sedation plan: IV Moderate Sedation Versed, Fentanyl 9:31:34 Procedure started. 9:33:22 Versed 1 mg I.V. was administered by Jo Cee RN; for sedation; 33:24 Fentanyl 50 mcg I.V. was administered by Jo Cee RN; for sedation; 9:33:27 Local anesthetic to right femoral artery with Lidocaine 2% by Eddie Johnson MD.INITIAL ACCESS ONLY 9:34:46 A 5 Fr sheath was inserted into the Right Femoral artery 9:35:01 A Cordis 5Fr JL 4.0 Catheter (MP) was advanced over the wire and used for Procedure. 9:35:12 LCA angiography performed. 9:35:35 Versed 1 mg I.V. was administered by Jo Cee RN; for sedation; 9:35:39 Fentanyl 50 mcg I.V. was administered by Jo Cee RN; for sedation; 9:37:06 Catheter removed. 9:37:14 A Cordis 5Fr 3DRC Catheter (MP) was advanced over the wire and used for Procedure. 9:37:37 Versed 1 mg I.V. was administered by Jo Cee RN; for sedation; 9:37:45 Fentanyl 50 mcg I.V. was administered by Jo Cee RN; for sedation; 9:38:33 RCA angiography performed. 9:38:37 Catheter removed. 9:40:55 A Cordis 5Fr Pigtail Catheter (MP) was advanced over the wire and used for LV Angiography. 9:41:37 EF : 55 % 9:42:23 Terumo 6Fr Terrell Sheath opened to sterile field. 9:42:26 Catheter removed. 9:42:43 Sheath upsized to a 6 Fr Short. 9:42:48 Extremis Technologytronic Launcher 6Fr HS I guide catheter opened to sterile field. 9:42:50 [employer] BasixCompak Inflation Kit opened to sterile field. 9:42:51 Ellis Whisper J 300cm 0.014 guide wire opened to sterile field. 9:42:59 Heparin Bolus 5000 units I.V. was administered by Jo Cee RN; for anticoagulation; dose verified by dr johnson 9:43:11 6 Fr HS1 guide catheter was inserted over the wire 9:43:24 Whisper wire advanced. 9:45:11 Integrilin (Bolus 2mg/ml) 7.9 ml I.V. was administered by Jo Cee RN; for antiplatelet therapy; 9:46:03 Inflation number: 1 A AMEE [place] 3.5 X 20 balloon was prepped and advanced across the Mid RCA, then inflated to 8 MICKI for 0:08 (min:sec). 9:46:35 Inflation number: 2 The [place] Sci [place] 3.5 X 20 balloon was reinflated across the Mid RCA, to 8 MICKI for 0:13 (min:sec). 9:47:14 Inflation number: 3 The [place] Sci [place] 3.5 X 20 balloon was reinflated across the Mid RCA, to 8 MICKI for 0:25 (min:sec). 9:47:52 Balloon removed over the wire. 9:51:36 Inflation Number: 4 A Medtronic Resolute 3.5 X 38 stent was prepped and advanced across the Mid RCA. The stent was deployed at 10 MICKI for 0:47 (min:sec). 9:54:59 Inflation Number: 5 A Medtronic Resolute 3.5 X 15 stent was prepped and advanced across the Mid RCA. The stent was deployed at 12 MICKI for 0:36 (min:sec). 9:57:16 Cordis 6Fr Exoseal opened to sterile field. 9:57:19 Wire removed. 9:57:20 Guide catheter removed. 9:57:36 Sheath removed intact; hemostasis achieved with Exoseal to the Right Femoral artery. 9:58:53 Procedure ended.(Physican Out) 9:58:59 Fluoroscopy time 07.00 minutes. 9:59:07 Fluoroscopy dose: 722 mGy 9:59:07 Flurop Dose total: 722 9:59:12 Contrast amount:Isovue 300 100ml. 9:59:14 Sharps counted by scrub and verified by R.N. 9:59:19 Insertion/operative site no bleeding no hematoma. 10:00:06 Post-op/insertion site Right Femoral artery dressed using a 4 x 4 and Tegaderm. 10:00:11 Post right femoral artery:stable 10:00:25 Post Procedure Pulses reassessed and unchanged 10:00:32 Post-procedure physical assessment completed. ASA score P 2 - A patient with mild systemic disease as per Eddie Johnson MD. 10:00:35 Post procedure rhythm: unchanged. 10:00:38 Estimated blood loss: 10 ml 10:00:40 Post procedure instruction explained to patient.Patient verbalizes understanding. 10:01:01 Procedure type changed to Cath procedure, Diagnostic procedure, LHC, LHC w/Coronaries, PCI procedure, Coronary Stent Initial, Miscellaneous Procedures, Moderate Sedation up to 15 minutes 10:01:06 Procedure and supply charges have been captured, reviewed, submitted and are correct. 10:01:31 Procedure Complication : No complications 10:01:33 Vital chart was stopped 10:01:35 See physician's report for complete and final results. 10:01:38 Report given to [facility]. 10:01:43 Patient transfered to [facility] with Bed. 10:01:45 Plavix 300 mg P.O. was administered by Jo Cee RN; for antiplatelet therapy; 10:01:47 Procedure ended. 10:01:47 Full Disclosure recording stopped 10:01:58 End room use (Document Last) Intervention Summary Intervention Notes Time ActionType Lesion and Equipment Action# Pressure Duration Attributes Used 9:46:03 Inflate Mid RCA [place] 1 8 00:08 balloon Sci [place] 3.5 X 20 balloon 9:46:35 Reinflate Mid RCA [place] 2 8 00:13 balloon Sci [place] 3.5 X 20 balloon 9:47:14 Reinflate Mid RCA [place] 3 8 00:25 balloon Sci [place] 3.5 X 20 balloon 9:51:36 Place stent Mid RCA Medtronic 4 10 00:47 Resolute 3.5 X 38 stent 9:54:59 Place stent Mid RCA Medtronic 5 12 00:36 Resolute 3.5 X 15 stent Device Usage Item Name Manufacture Quantity Catalog Number Hospital Part Current Mini [facility] Lot# / Charge Number Stock Stock Serial# Code Acist Acist 1 [id number] 164971 122715 20 Syringe Medical Systems Inc Bag Microtek 1 2002S 421275 83446 688554 5 [employer] Medline Cardinal 1 [id number] 361341 94154 977033 5 Abound Logic Terumo 5Fr Terumo 1 [id number] 999943 593788 772563 [address] Malick St Malick 1 [id number] 533410 013694 509516 30 260cm J .035 wire Acist Hand Acist 1 70623 661932 352968 335028 5 made.com [employer] Inc Acist Acist 1 21968 562064 365412 059936 5 Flattr Medical Systems Inc Diagnostic Cardinal 1 [id number] 904260 73890 725135 30 Infinity Health 5Fr Multipack catheter Tegaderm 4 3M 1 1626W 734267 413009 080647 5 x 4 Cordis 5Fr Cardinal 1 266749 5 JL 4.0 Health Catheter (MP) Cordis 5Fr Cardinal 1 448450 5 3DRC Health Catheter (MP) Cordis 5Fr Cardinal 1 967852 5 Pigtail Health Catheter (MP) Terumo 6Fr Terumo 1 [id number] 315630 191194 112057 40 Terrell Sheath Medtronic Medtronic 1 [id number] 284273 84066 149838 1 Launcher 6Fr HS I guide catheter [facility] 1 [id number] 948452 115079 228867 15 BasixImageBriefk Medical Inflation Kit Ellis Ellis 1 [id number] 011282 344914 699654 5 Whisper J Vascular 300cm 0.014 guide wire [place] Sci [place] 1 [id number] 506376 241175 708817 1 [id number] [employer]* Scientific 3.5 X 20 balloon Medtronic Medtronic 1 [id number] 475570 796511 0 [id number] Resolute 3.5 X 38 stent Medtronic Medtronic 1 [id number] 787092 968264 2 [id number] Resolute 3.5 X 15 stent Cordis 6Fr Cardinal 1 [id number] 621046 416874 635240 10 [facility] [employer] Signature Audit [place] Stage Time Signature Unsigned Intra-Procedure 11/28/2016 Tata Herman 10:03:40 AM RT(R) Signatures Monitor : Tata Herman Signature : RT Date : Time : [facility] [address] [place] [address]
[~2016-11-28 01:53] MED LIST: ALTACE5 MG PO; ASPIRIN325 MG PO; ATORVASTATIN; LIPITOR40 MG PO; MUCUS RELIEF400 MG PO; PLAVIX75 MG PO; RAMIPRIL; TOPROL XL50 MG PO; ZANTAC150 MG PO
[2016-11-28 01:57] LABS: BASOPHILS 0.4 % (0-2); EOSINOPHILS 1.5 % (0-7); HEMATOCRIT 44.9 % (42.0-54.0); HEMOGLOBIN 14.9 g/dL (13.5-17.5); IMMATURE GRANULOCYTES 0.5 % (0-5); LYMPHOCYTES 29.6 % (15-50); MCH 30.8 pg (26.0-34.0); MCHC 33.2 g/dL (31.0-37.0); MCV 92.8 fL (80.0-100.0); MEAN PLATELET VOLUME 12.8 fL (7.4-10.4); MONOCYTES 7.4 % (2-11); NEUTROPHILS 60.6 % (40-80); PLATELET COUNT 157 10x3/uL (130-400); RBC 4.84 10x6/uL (4.20-6.10); RDW 12.9 % (11.5-14.5)
[2016-11-28 02:11] LABS: ALBUMIN 3.3 g/dL (3.4-5.0); ALKALINE PHOSPHATASE 68 U/L (46-116); ALT (SGPT) 33 U/L (10-68); BILIRUBIN - TOTAL 0.31 mg/dL (0.2-1.3); CALC OSMOLALITY 283 mosm/kg (275-300); CALCIUM 8.7 mg/dL (8.5-10.1); CARBON DIOXIDE 27.3 mmol/L (21.0-32.0); CHLORIDE - SERUM 106 mmol/L (98-107); GLUCOSE 90 mg/dL (74-106); POTASSIUM - SERUM 4.2 mmol/L (3.5-5.1); PROTEIN - SERUM 6.4 g/dL (6.4-8.2); SODIUM 141 mmol/L (136-145); UREA NITROGEN 20 mg/dL (7-18); eGFR NON AFRICAN AMERICAN 82 mL/min (90-120)
[2016-11-28 02:19] LABS: CHOL - HDL RATIO 4.3 ratio (2.3-4.9); CHOLESTEROL, TOTAL 151 mg/dL (0-200); CKMB 0.8 U/L (0.0-3.6); CREATINE KINASE 81 UL (21-232); HDL CHOLESTEROL 35 mg/dL (32-96); LDL CHOLESTEROL 85 mg/dL (0-100); LDL-HDL RATIO 2.4 ratio (1.5-3.5); TRIGLYCERIDE 157 mg/dL (30-200)
[2016-11-28 02:20] LABS: TROPONIN-I < 0.017 ng/mL (0.000-0.060)
--- NOTE | 2016-11-28 02:40 | NUR ---
RECEIVED PT TO ROOM 2115 ALERT O X3. ASSESS AND HISTORY COMPLETE. MEDS REVIEWED WITH PT. DISCUSSED PLAN OF CARE AND NPO AFTER MN FOR CATH THIS AM. CONSENTS SIGNED AND PLACED ON CHART.
[2016-11-28 02:48] VITALS: BP 107/65; Ht 170.2 cm; Wt 87.7 kg
[2016-11-28 07:55] LABS: BASOPHILS 0.2 % (0-2); EOSINOPHILS 1.5 % (0-7); HEMATOCRIT 42.5 % (42.0-54.0); IMMATURE GRANULOCYTES 0.3 % (0-5); LYMPHOCYTES 27.6 % (15-50); MCH 30.5 pg (26.0-34.0); MCHC 32.9 g/dL (31.0-37.0); MCV 92.6 fL (80.0-100.0); MEAN PLATELET VOLUME 12.6 fL (7.4-10.4); NEUTROPHILS 63.4 % (40-80); PLATELET COUNT 146 10x3/uL (130-400); RBC 4.59 10x6/uL (4.20-6.10); WBC 8.6 10x3/uL (4.8-10.8)
[2016-11-28 08:07] LABS: CALC OSMOLALITY 281 mosm/kg (275-300); CALCIUM 8.3 mg/dL (8.5-10.1); CARBON DIOXIDE 24.9 mmol/L (21.0-32.0); CHLORIDE - SERUM 108 mmol/L (98-107); GLUCOSE 98 mg/dL (74-106); POTASSIUM - SERUM 4.2 mmol/L (3.5-5.1); SODIUM 140 mmol/L (136-145); UREA NITROGEN 21 mg/dL (7-18); eGFR NON AFRICAN AMERICAN 82 mL/min (90-120)
--- NOTE | 2016-11-28 08:33 | NUR ---
PRE-OPS GIVEN. TO AUTOMATION SOFTWARE ENGINEER BY BED.
[2016-11-28 08:40] VITALS: BP 112/57
--- NOTE | 2016-11-28 10:28 | NUR ---
BACK FROM MEAT BONER AND SLICER. VS WNL. RIGHT GROIN STABLE WITHOUT BLEEDING OR HEMATOMA NOTED. WILL MONITOR.
[2016-11-28 12:31] VITALS: BP 133/79
--- NOTE | 2016-11-28 14:04 | NUR ---
BED REST UP. GROIN STABLE.
--- NOTE | 2016-11-28 16:28 | NUR ---
IV AND TELEMETRY DCD. DC PLANS GIVEN. UNDERSTANDING VOICED. ESCORTED TO CAR BY W/C.
== END 2016-11-28 16:28 | disposition home or self-care (01) ==
LOC: OBSVTIME → D.M2 01:53 → D.CATH 01:53 → D.ER 01:53 → EDSTATUS 07:00 → D.M2 16:28 → D.CATH 16:28 → D.M2 16:28
PROVIDERS: Family Medicine; Internal Medicine Cardiovascular Disease
DX: I20.0 Unstable angina (principal); Z95.5 Presence of coronary angioplasty implant and graft; I10 Essential (primary) hypertension; F17.200 Nicotine dependence, unspecified, uncomplicated; Z01.812 Encounter for preprocedural laboratory examination